=== PATIENT | female | born 1950 | race Hispanic/Latino ===

== ENCOUNTER 2018-10-15 11:17 | Day surgery (SDC) | payer MEDICARE, OTHER ==
[~2018-10-15 11:17] MED LIST: AK-Dilate ONE; IOPIDINE ONE; MYDRIACYL ONE
[2018-10-15] MEDS ORDERED: AK-Dilate OS ONE (11:37)
[2018-10-15] MEDS ORDERED: IOPIDINE OS ONE ×2 (11:37→12:27)
[2018-10-15] MEDS ORDERED: MYDRIACYL OS ONE (11:37)
[2018-10-15 14:30] VITALS: BP 126/63
== END 2018-10-15 12:32 | disposition home or self-care (01) ==
LOC: OR 11:17
PROVIDERS: ATTEND Ophthalmology
DX: H26.492 Other secondary cataract, left eye (principal); H40.9 Unspecified glaucoma; E78.00 Pure hypercholesterolemia, unspecified; I10 Essential (primary) hypertension; K21.9 Gastro-esophageal reflux disease without esophagitis; M19.90 Unspecified osteoarthritis, unspecified site; F32.9 Major depressive disorder, single episode, unspecified; F17.210 Nicotine dependence, cigarettes, uncomplicated; F41.9 Anxiety disorder, unspecified; Z72.89 Other problems related to lifestyle; Z79.899 Other long term (current) drug therapy; Z98.42 Cataract extraction status, left eye; Z98.41 Cataract extraction status, right eye; Z90.49 Acquired absence of other specified parts of digestive tract; Z90.710 Acquired absence of both cervix and uterus; Z98.890 Other specified postprocedural states